=== PATIENT | male | born 1990 | race Caucasian/White ===

== ENCOUNTER 2016-07-10 09:05 | Emergency (ER) | payer BC ==
[2016-07-10 09:26] VITALS: BP 133/68
[2016-07-10] MEDS ORDERED: Naproxen TAB* 250 MG PO ONE (10:37)
--- NOTE | 2016-07-10 10:43 | UC ---
Lower Extremity/Ankle HPI - HPI Summary HPI Summary: 25 male presents complaining of right hamstring pain and injury that happened last night around 10pm while playing flag football. Patient has not taken any medication for the pain. He has been icing the area which he states helps along with rest. He states when he is sitting with his knee slightly bent he is most comfortable. The pain is worse upon extension of knee and flexion of his hip. He is able to bear weight and walk with a limp. Patient has injured his left hamstring in the past. He works out a lot and suffers from muscle tightness. He is aware of stretches that will help his hamstring. Admits to an episode of spasm and muscle tightness. He states he heard and felt a "popping" sensation when it happened. RUBEN was when he was running and jumped to turn quickly. Pain is about an 8/10 upon movement. Denies any PMHx. Denies numbness/tingling, cold extremity, back, hip, knee or ankle/foot pain. Pain does radiate into his right groin and gluteal area upon certain movements. - History of Current Complaint Chief Complaint: UCLowerExtremity Stated Complaint: RIGHT LEG PAIN Hx Obtained From: Patient Onset/Duration: Sudden Onset Severity Initially: Mild Severity Currently: Moderate Pain Intensity: 8 Pain Scale Used: 0-10 Numeric Aggravating Factor(s): Standing, Ambulation Alleviating Factor(s): Rest, Elevation, Ice Able to Bear Weight: Yes Legs: 1 - point of most pain - Risk Factors Gout Risk Factors: Negative DVT Risk Factors: Negative Septic Arthritis Risk Factor: Negative - Allergies/Home Medications Allergies/Adverse Reactions: Allergies Allergy/AdvReac Type Severity Reaction Status Date / Time No Known Allergies Allergy Verified 07/10/16 09:21 PMH/Surg Hx/FS Hx/Imm Hx Previously Healthy: Yes - Surgical History Surgical History: None - Family History Known Family History: Positive: None - Social History Occupation: Employed Full-time - as imaging engineer Alcohol Use: None Substance Use Type: None Smoking Status (MU): Never Smoked Tobacco Review of Systems Constitutional: Negative Skin: Negative Eyes: Negative ENT: Negative Respiratory: Negative Cardiovascular: Negative Gastrointestinal: Negative Motor: Decreased ROM - right leg, hamstring Neurovascular: Negative Musculoskeletal: Decreased ROM, Myalgia - right leg, hamstring Neurological: Negative Psychological: Negative All Other Systems Reviewed And Are Negative: Yes Physical Exam Triage Information Reviewed: Yes Appearance: Well-Appearing, Well-Nourished, Pain Distress Vital Signs: Initial Vital Signs Temp 97.8 F 07/10/16 09:22 Pulse 88 07/10/16 09:22 Resp 14 07/10/16 09:22 BP 133/68 07/10/16 09:22 Pulse Ox 98 07/10/16 09:22 Vital Signs Reviewed: Yes Eyes: Positive: Conjunctiva Clear Neck: Positive: Supple, Nontender Respiratory: Positive: Chest non-tender, Lungs clear, Normal breath sounds, No respiratory distress Cardiovascular: Positive: RRR, No Murmur, Pulses Normal - 3+ pedal and radial bilateral pulses, Brisk Capillary Refill - <2 seconds Abdominal Exam: Normal Musculoskeletal: Positive: Strength Intact - however painful. Right leg 4/5 and left leg 5/5. sensation intact. no crepitus, deformity, erythema, bruising or edema noted. compared to left leg and appears the same. pedal pulses 3+. No tenderness upon palpation of right hamstring, hip, knee, ankle/foot. Patient points to maximal point of soreness in the proximal, posterior medial thigh., No Edema, Strength Limited @, ROM Limited @ - painful upon extension of knee and ambulation but is able to do it. extension of knee and flexion of hip limited due to pain. passive ROM intact. abduction and adduction normal., Other : - No bony tenderness or deformities. Neurological Exam: Normal Psychological Exam: Normal Skin Exam: Normal Lower Extremity Course/Dx - Course Course Of Treatment: Patient was given Naproxen in office. He will be sent home with Naproxen and a muscle relaxer to take for the next 7-10 days. Patient will ice and rest his leg and refrain from physical activity. He is able to sit at work. Was told if symptoms worsen or do not improve to return for further evaluation and referral to ortho. - Differential Dx/Diagnosis Differential Diagnosis/HQI/PQRI: Contusion, Sprain, Strain Provider Diagnoses: right muscle (hamstring) strain Discharge - Discharge Plan Condition: Stable Disposition: HOME Prescriptions: Cyclobenzaprine TAB* [Flexeril TAB*] 10 mg PO DAILY #7 tab Naproxen TAB* [Naprosyn TAB*] 250 mg PO Q8H PRN #20 tab PRN Reason: Pain Patient Education Materials: Hamstring Injury (ED), Muscle Strain (ED) Referrals: No Primary Care Phys,NOPCP [Primary Care Provider] - [facility] [Outside] Additional Instructions: Take medication as prescribed as needed for the next 10 days. Be sure to take Naproxen with food. If symptoms worsen or do not improve within the next 14 days please return to for further evaluation/imaging. Use ice 3-4 times a day for the next couple of days. Rest the leg and refrain from physical activity for the next 10 days or until symptoms improve. Follow-up with PCP is recommended.
== END 2016-07-10 10:51 | disposition home or self-care (01) ==
LOC: UCCORT 09:05
DX: S76.811A Strain of other specified muscles, fascia and tendons at thigh level, right thigh, initial encounter (principal); X58.XXXA Exposure to other specified factors, initial encounter; Y93.62 Activity, american flag or touch football; Y92.9 Unspecified place or not applicable
CPT/HCPCS: 99212; A9270-GY; G0463

== ENCOUNTER 2017-11-15 14:23 | Emergency (ER) | payer BC ==
[2017-11-15 18:27] LABS: ABS Basophils 0.1 10^3/ul (0-0.2); ABS Eosinophils 0.1 10^3/ul (0-0.6); ABS Lymphocytes 2.3 10^3/ul (1.0-4.8); ABS Monocytes 0.6 10^3/ul (0-0.8); ABS Neutrophils 5.9 10^3/ul (1.5-7.7); ABS Nucleated RBC 0 10^3/ul; Eosinophil % 1.2 % (0-6); Hematocrit 44 % (42-52); Hemoglobin 15.7 g/dl (14.0-18.0); Lymphocyte % 25.5 % (25-47); Mean Corpuscular HGB Conc 36 g/dl (31-36); Mean Corpuscular Hemoglobin 32 pg (27-31); Mean Corpuscular Volume 88 fL (80-94); Mean Platelet Volume 7.3 um3 (7.4-10.4); Nucleated Red Blood Cells % 0; Platelet Count 190 10^3/ul (150-450); Red Blood Count 4.97 10^6/ul (4.0-5.4); Red Cell Distribution Width 13 % (10.5-15)
[2017-11-15 18:36] LABS: INR 0.99 (0.77-1.02)
--- NOTE | 2017-11-15 19:35 | RAD ---
INDICATION: "Thunderclap" headache while squatting 315 pounds COMPARISON: Similar CT of the brain dated March 07, 2006 TECHNIQUE: Contiguous axial sections of the brain were obtained from the skull base to the vertex without contrast. FINDINGS: The ventricles, cisterns and sulci are within normal limits. The dale-white matter differentiation is adequately maintained and there is no sulcal effacement. No significant focal abnormality or mass effect is present. There is no evidence for intracranial hemorrhage. No significant focal osseous abnormality is present. The visualized portion of the paranasal sinuses appear clear. The mastoid air cells are well aerated bilaterally. IMPRESSION: Normal CT of the brain.
[2017-11-15] MEDS ORDERED: Lidocaine 2% PF * 5 ML VIAL ONE (20:11)
[2017-11-15] MEDS ORDERED: diPHENhydraMINE PO* 25 MG PO ONE (20:47)
[2017-11-15] MEDS ORDERED: Ibuprofen TAB* 400 MG PO ONE (20:47)
[2017-11-15] MEDS ORDERED: Acetaminophen TAB* 325 MG PO ONE (20:47)
--- NOTE | 2017-11-15 21:55 | ED ---
Jyothi Galvan Emily, scribed for Salome Raya MD on 11/15/17 at 1742 . Headache - HPI Summary HPI Summary: This patient is a 26 year old M presenting to [facility] with a chief complaint of sudden onset, waxing and waning, dull, L SEGOVIA on the top of his head that began at 1345 today. Pt reports that he was doing weighted squats (with his normal 315 lbs dumbbell across back) at the gym, and he hear a loud pop in his head; the headache started immediately after this. At the time of onset, the headache was a 9/10 in severity. The headache has lessened to a 6/10 in severity currently. Patient reports blurred vision (resolved), dizziness, lightheadedness , and nausea (resolved). Patient denies neck pain, CP, SOB, and abd pain. - History Of Current Complaint Chief Complaint: EDDizziness Stated Complaint: HEADACHE/NAUSEA Time Seen by Provider: 11/15/17 17:04 Hx Obtained From: Patient Onset/Duration: Sudden Onset, Started hours ago, Still Present Initially Headache Was: Initial Pain Scale(0-10)= - 9, Severe Currently Pain Is: Current Pain Scale(0-10)= - 6, Moderate Timing: Constant, Hours Character: Dull Location of Headache: Other: - top of his head from front to back Aggravating Factor: Nothing Allevating Factors: Nothing Associated Signs And Symptoms: Dizziness, Visual Changes - blurred vision, Other (Noted In Comments) - Positive blurred vision (resolved), dizziness, lightheadedness, and nausea (resolved). Negative neck pain, CP, SOB, and abd pain - Allergies/Home Medications Allergies/Adverse Reactions: Allergies Allergy/AdvReac Type Severity Reaction Status Date / Time No Known Allergies Allergy Verified 11/15/17 14:35 Home Medications: Home Medications Cetirizine* [ZyrTEC 10 MG TAB*] 10 mg PO DAILY 11/15/17 [History Confirmed 11/15] Multivitamins/Minerals TAB* [Theragran/minerals TAB*] 1 tab PO DAILY 11/15/17 [ History Confirmed 11/15/17] PMH/Surg Hx/FS Hx/Imm Hx Previously Healthy: Yes Endocrine/Hematology History: Denies: Hx Thyroid Disease Cardiovascular History: Denies: Hx Hypertension Respiratory History: Denies: Hx Asthma Opthamlomology History: Denies: Hx Legally Blind EENT History: Denies: Hx Deafness Neurological History: Denies: Hx Headaches, Hx Migraine - Surgical History Surgery Procedure, Year, and Place: None Hx Anesthesia Reactions: No Infectious Disease History: Yes Infectious Disease History: Denies: Traveled Outside the [place] in Last 30 Days - Family History Known Family History: Positive: Other - Mother Islas's Palsy. Negative stroke Negative: Cardiac Disease, Hypertension - Social History Occupation: Employed Full-time Lives: With Family Alcohol Use: None Substance Use Type: Reports: None Smoking Status (MU): Never Smoked Tobacco Review of Systems Positive: Blurred Vision - resolved Negative: Chest Pain Negative: Shortness Of Breath Positive: Nausea - resolved. Negative: Abdominal Pain Positive: Other - Negative neck pain Neurological: Other - Positive dizziness and lightheadedness Psychological: Normal All Other Systems Reviewed And Are Negative: Yes Physical Exam - Summary Physical Exam Summary: Appearance: Well-appearing, moderate pain distress, well-nourished Skin: Warm, color reflects adequate perfusion, dry Head: Normal Head/Face inspection, atraumatic Eyes: Conjunctiva clear, PERRL, EOMI ENT: Normal inspection Neck: Supple, no nodes, no JVD, no spinal tenderness, moves neck well in all directions Respiratory: Lungs clear, normal breath sounds, no respiratory distress Cardio: RRR, No murmur, pulses normal, brisk capillary refill Abdomen: Soft, nontender Bowel sounds: Present Musculoskeletal: Strength Intact/ROM intact, no calf tenderness, no edema. Psychological: Normal Neuro: A&O x3, CN II-XII intact, motor function 5/5, sensation intact, cerebellar normal Triage Information Reviewed: Yes Vital Signs On Initial Exam: Initial Vitals Temp Pulse Resp BP Pulse Ox 97.3 F 87 18 139/81 95 11/15/17 14:35 11/15/17 14:35 11/15/17 14:35 11/15/17 14:35 11/15/17 14:35 Vital Signs Reviewed: Yes Diagnostics - Vital Signs Vital Signs Temp Pulse Resp BP Pulse Ox 11/15/17 14:35 97.3 F 87 18 139/81 95 - Laboratory Lab Results: Lab Results 11/15/17 11/15/17 11/15/17 Range/Units 18:18 18:18 18:18 WBC 9.0 (3.5-10.8) 10^3/ul RBC 4.97 (4.0-5.4) 10^6/ul Hgb 15.7 (14.0-18.0) g/dl Hct 44 (42-52) % MCV 88 (80-94) fL MCH 32 H (27-31) pg MCHC 36 (31-36) g/dl RDW 13 (10.5-15) % Plt Count 190 (150-450) 10^3/ul MPV 7.3 L (7.4-10.4) um3 Neut % (Auto) 66.1 (38-83) % Lymph % (Auto) 25.5 (25-47) % [place] % (Auto) 6.6 (0-7) % Eos % (Auto) 1.2 (0-6) % Baso % (Auto) 0.6 (0-2) % Absolute Neuts (auto) 5.9 (1.5-7.7) 10^3/ul Absolute Lymphs (auto) 2.3 (1.0-4.8) 10^3/ul Absolute Monos (auto) 0.6 (0-0.8) 10^3/ul Absolute Eos (auto) 0.1 (0-0.6) 10^3/ul Absolute Basos (auto) 0.1 (0-0.2) 10^3/ul Absolute Nucleated RBC 0 10^3/ul Nucleated RBC % 0 INR (Anticoag Therapy) 0.99 (0.77-1.02) Sodium 138 L (139-145) mmol/L Potassium 3.8 (3.5-5.0) mmol/L Chloride 105 (101-111) mmol/L Carbon Dioxide 26 (22-32) mmol/L Anion Gap 7 (2-11) mmol/L BUN 23 (6-24) mg/dL Creatinine 1.00 (0.67-1.17) mg/dL Est GFR ( Amer) 114.4 (>60) Est GFR (Non-Af Amer) 89.0 (>60) BUN/Creatinine Ratio 23.0 H (8-20) Glucose 98 (70-100) mg/dL Calcium 9.2 (8.6-10.3) mg/dL Total Bilirubin 0.30 (0.2-1.0) mg/dL AST 28 (13-39) U/L ALT 55 H (7-52) U/L Alkaline Phosphatase 59 (34-104) U/L C-Reactive Protein 1.93 (< 5.00) mg/L Total Protein 6.9 (6.4-8.9) g/dL Albumin 4.4 (3.2-5.2) g/dL Globulin 2.5 (2-4) g/dL Albumin/Globulin Ratio 1.8 (1-3) CSF Glucose (40-70) mg/dL CSF Total Protein (15-45) mg/dL 11/15/17 Range/Units 20:17 WBC (3.5-10.8) 10^3/ul RBC (4.0-5.4) 10^6/ul Hgb (14.0-18.0) g/dl Hct (42-52) % MCV (80-94) fL MCH (27-31) pg MCHC (31-36) g/dl RDW (10.5-15) % Plt Count (150-450) 10^3/ul MPV (7.4-10.4) um3 Neut % (Auto) (38-83) % Lymph % (Auto) (25-47) % [place] % (Auto) (0-7) % Eos % (Auto) (0-6) % Baso % (Auto) (0-2) % Absolute Neuts (auto) (1.5-7.7) 10^3/ul Absolute Lymphs (auto) (1.0-4.8) 10^3/ul Absolute Monos (auto) (0-0.8) 10^3/ul Absolute Eos (auto) (0-0.6) 10^3/ul Absolute Basos (auto) (0-0.2) 10^3/ul Absolute Nucleated RBC 10^3/ul Nucleated RBC % INR (Anticoag Therapy) (0.77-1.02) Sodium (139-145) mmol/L Potassium (3.5-5.0) mmol/L Chloride (101-111) mmol/L Carbon Dioxide (22-32) mmol/L Anion Gap (2-11) mmol/L BUN (6-24) mg/dL Creatinine (0.67-1.17) mg/dL Est GFR ( Amer) (>60) Est GFR (Non-Af Amer) (>60) BUN/Creatinine Ratio (8-20) Glucose (70-100) mg/dL Calcium (8.6-10.3) mg/dL Total Bilirubin (0.2-1.0) mg/dL AST (13-39) U/L ALT (7-52) U/L Alkaline Phosphatase (34-104) U/L C-Reactive Protein (< 5.00) mg/L Total Protein (6.4-8.9) g/dL Albumin (3.2-5.2) g/dL Globulin (2-4) g/dL Albumin/Globulin Ratio (1-3) CSF Glucose 59 (40-70) mg/dL CSF Total Protein 57 H (15-45) mg/dL Result Diagrams: 18 18:18 0618 18:18 Lab Statement: Any lab studies that have been ordered have been reviewed, and results considered in the medical decision making process. Re-Evaluation - Re-Evaluation First Eval Re-Evaluation Time: 18:32 Change: Worse Comment: Pt reports that when his headache worsened to a 10/10 and brings tears to his eyes. Headache Course/Dx - Course Assessment/Plan: This patient is a 26 year old M presenting to [facility] with a chief complaint of sudden onset, waxing and waning, dull, L SEGOVIA on the top of his head that began at 1345 today. Pt will be signed out to Dr. Gibbs upon shift change pending CT. The patient is agreeable with this plan. - Diagnoses Provider Diagnoses: Thunderclap headache Discharge - Sign-Out/Discharge Documenting (check all that apply): Sign-Out Patient Signing out patient TO: Kevon Gibbs - Discharge Plan Referrals: No Primary Care Phys,NOPCP [Primary Care Provider] - The documentation as recorded by the Jyothi steele Emily accurately reflects the service I personally performed and the decisions made by me, Salome Raya MD.
[2017-11-15 22:44] VITALS: BP 130/71
== END 2017-11-15 22:44 | disposition home or self-care (01) ==
LOC: ED 14:23
DX: G44.53 Primary thunderclap headache (principal)
CPT/HCPCS: 36415; 70450; 80053; 82945; 84157; 85025; 85610; 86140; 87070; 87205; 89051; 99284; A9270-GY